=== PATIENT | male | born 1975 | race Caucasian/White ===

== ENCOUNTER 2024-07-06 15:35 | Emergency (ER) | payer OTHER, SELFPAY ==
[2024-07-06] VITALS (13 sets, daily range): BP systolic 141–156; BP diastolic 90–98; PULSE 62–81; RESP 8–18; TEMP 36.8; O2SAT 95–99
--- NOTE | ~2024-07-06 | XR_ITS ---
EXAMINATION: XR chest 2V Exam Date/Time: 07/06/2024 16:00 CDT HISTORY: cp Comparison: None. RESULT: Lines, tubes, and devices: None. Lungs and pleura: Clear. Cardiomediastinal silhouette: Normal. Other: No acute osseous or upper abdominal finding. IMPRESSION: No acute cardiopulmonary process. Reviewed, dictated and finalized at location K.
--- NOTE | 2024-07-06 15:38 | ECG_ITS ---
Test Date: 2024-07-06 15:44:04 Measurements Intervals [place] Rate: 82 P: 28 VA: 144 QRS: 73 QRSD: 97 T: 54 QT: 370 QTc: 432 Interpretive Statements SINUS RHYTHM WITH SINUS ARRHYTHMIA NORMAL ECG No previous ECG available for comparison Electronically Signed On 07-07-2024 13:45:14 CDT by Moreno Seals M.D.
--- NOTE | 2024-07-06 16:01 | PC.NURSE ---
mistaken entry, no ice pack applied to this pt
--- NOTE | 2024-07-06 16:09 | ED.CHESTPAIN ---
HPI - Chest Pain General Chief Complaint: Chest Pain Stated Complaint: dont feel right Time Seen by Provider: 07/06/24 15:46 Source: patient Mode of arrival: ambulatory Limitations: no limitations History of Present Illness HPI narrative: Patient is a 48-year-old male with chest pressure for the past day. This started at 9:00 a.m. today. He has been having chest pressure and pain that radiates to the left arm. he related to feeling like a gas bubble in the chest. MD complaint: chest pain and chest heaviness Pertinent past history: other ( No prior CAD issues) Onset (ago): day(s) (1) Timing of current episode: constant Prior episodes: No Onset: during rest and during exertion Pain location: substernal and left chest Pain radiation: left arm Severity: moderate Pain scale (0-10): 5 Quality: heaviness, sharp and shooting Relieving factors: nothing Exacerbating factors: nothing Context: other ( Negative history) Treatment prior to arrival: none Risk Factors Coronary artery disease risk factors: none Thoracic aortic dissection risk factors: none Related Data Home Medications Medication Instructions Recorded Confirmed No Home Medications 07/06/24 07/06/24 Allergies Allergy/AdvReac Type Severity Reaction Status Date / Time No Known Allergies Allergy Verified 07/06/24 15:55 Review of Systems Review of Systems: All systems reviewed & are unremarkable except as noted in HPI and below Constitutional: Constitutional: Reports no additional constitutional complaints Eyes: Eyes: Reports no additional eye complaints ENT: Reports system reviewed and no additional complaints, except as documented Cardiovascular: Cardiovascular: Reports no additional cardiovascular complaints Respiratory: Respiratory: Reports no additional respiratory complaints Gastrointestinal: Gastrointestinal: Reports no additional gastrointestinal complaints Genitourinary: Genitourinary: Reports no additional male genitourinary complaints Musculoskeletal: Musculoskeletal: Reports no additional musculoskeletal complaints Integumentary/Breasts: Skin/Breast: Reports system reviewed and no additional complaints, except as docu Neurologic: Reports system reviewed and no additional complaints, except as documented Psychiatric: Psychiatric: Reports no additional psychiatric complaints Endocrine: Endocrine: Reports no additional endocrine complaints Hematologic/Lymphatic: Hematologic/Lymphatic: Reports no additional hematologic/lymphatic complaints Allergic/Immunologic: Allergic/Immunologic: Reports no additional allergic/immunologic complaints Exam Const: General: healthy appearing Nutritional Appearance: well nourished Orientation/consciousness: patient oriented x3 HENMT: Head: normal to inspection Ears: external ears normal Face/Nose/Sinus: Normal external nose present Eyes: Conjunctivae: conjunctivae normal Pupils: Equal, round and reactive pupils present EOM: EOMs intact bilaterally Neck: Neck: normal visual inspection Chest: Chest palpation & inspection: normal inspection of the chest Resp: Effort & Inspection: normal respiratory effort and not labored Auscultation: clear to auscultation bilaterally and no crackles Cardio: Rate: regular rate Rhythm: regular rhythm Heart sounds: no murmurs GI: Inspection: non-distended GI Palp: Yes Soft to palpation and No Tenderness to palpation present (GI) Auscultation: normal bowel sounds : General: Yes bladder normal to palpation Back/Spine/Pelvis: Back: no CVA tenderness Skin: General skin exam: normal color Rashes: no rashes Wounds: no wounds Neuro: General: patient oriented x3 Cranial nerves: Yes Nystagmus not present Speech: normal speech Extrem: General: normal to inspection Psych: Mental Status: mental status grossly normal Affect: normal affect Attitude: cooperative Course Vital Signs Vital signs: Vital Signs Pulse Rate 75 07/06/24 15:35 Oxygen D
[2024-07-06 16:32] LABS: Basophils Absolute Auto 0.04 K/mm3 (0.00-0.10); Basophils Percent Auto 0.4 % (0.0-1.0); Eosinophils Absolute Auto 0.11 K/mm3 (0.02-0.50); Hematocrit 43.4 % (40.0-54.0); Hemoglobin 15.2 g/dL (14.0-18.0); Immature Granulocyte Absolute 0.05 K/mm3 (0.00-0.00); Immature Granulocyte Percent A 0.4 % (0.0-0.0); Lymphocytes Absolute Auto 2.29 K/mm3 (1.10-4.50); Lymphocytes Percent Auto 20.1 % (18.0-42.0); Mean Corpuscular Volume 94.3 fL (78.0-102.0); Mean Platelet Volume 9.1 fl (8.7-11.0); Monocytes Absolute Auto 0.69 K/mm3 (0.10-0.90); Neutrophils Absolute Auto 8.23 K/mm3 (1.70-7.20); Neutrophils Percent Auto 72.1 % (50.0-70.0); Platelet Count Result 258 K/mm3 (150-420); Red Cell Distribution Width 11.9 % (11.6-14.4); White Blood Count 11.4 K/mm3 (4.8-10.8)
--- NOTE | 2024-07-06 16:36 | PC.NURSE ---
PT HAS SIG OTHER AT BEDSIDE, DENIES ANY NEEDS OR COMPLAINTS. PT IS AWAITING RESULTS AT THIS TIME. NO CHANGE IN STATUS. VSS PER MONITOR. WILL CONTINUE TO MONITOR.
[2024-07-06 16:37] LABS: Amphetamine Screen Urine Negative (Negative); Barbiturate Screen Urine Negative (Negative); Benzodiazepines Screen Urine Negative (Negative); Cannabinoid Screen Urine Negative (Negative); Cocaine Screen Urine Negative (Negative); Methadone Screen Urine Negative (Negative); Opiate Screen Urine Negative (Negative); Phencyclidine Screen Urine Negative (Negative)
[2024-07-06 16:53] LABS: Alanine Aminotransferase 36 U/L (16-63); Albumin Level 3.8 g/dL (3.4-5.0); Alkaline Phosphatase 83 U/L (46-116); Anion Gap 5 mmol/L (4-12); Aspartate Amino Transferase 26 U/L (15-37); Bilirubin,Total 0.3 mg/dL (0.00-1.00); Blood Urea Nitrogen 12 mg/dL (7-18); Calcium 9.3 mg/dL (8.5-10.1); Carbon Dioxide 32 mmol/L (21-32); Chloride 99 mmol/L (98-108); Estimated CRCL calculation 99 ml/min; Estimated Glomerular Filt Rate > 60; Glucose 154 mg/dL (70-99); Lipase 23 U/L (16-77); NT Pro B Type Natriuretic Pept 30 pg/mL (0-125); Osmolality Calculated 284 mOsm/kg (285-295); Sodium 136 mmol/L (136-145); Total Protein 7.7 g/dL (6.4-8.2)
[2024-07-06 16:55] LABS: Troponin I 1078.7 ng/L (0.00-60.4)
[2024-07-06] MEDS: ASPIRIN 81 MG CHEWABLE TABLET 324 MG PO (17:15)
--- NOTE | 2024-07-06 17:18 | PC.NURSE ---
PT IS AWARE OF PLAN OF CARE, DENIES ANY NEEDS OR COMPLAINTS. PT REPORTS NO CHANGE IN STATUS, STATES HIS HEADACHE IS WORSE THAN THE PRESSURE IN HIS CHEST. SIG OTHER AT BEDSIDE. WILL CONTINUE TO MONITOR.
--- NOTE | 2024-07-06 18:39 | PC.NURSE ---
AWAITING APPROVAL FROM PHARMACY TO INITIATE HEPARIN DRIP. PT HAS SIG OTHER HAVE BEEN UPDATED. NAD NOTED. PT DENIES ANY NEEDS OR COMPLAINTS. PT IS AWAITING ROOM ASSIGNMENT. WILL CONTINUE TO MONITOR.
[2024-07-06] MEDS: HEPARIN SODIUM 5,000 UNITS/ML VIAL 4000 UNITS IV PUSH (18:49)
[2024-07-06] MEDS: HEPARIN SOD/D5W 100 UNITS/ML 25,000 UNITS/250 ML BAG 10 UNITS IV CONT (18:50)
--- NOTE | 2024-07-06 19:05 | PC.NURSE ---
1844 ROOM ASSIGNMENT 210 AT [facility] 1855 REPORT TO RN GERONIMO 839 SAAS NOTIFIED. BELONGINGS LIST COMPLETED. PT IS AWARE OF PLAN OF CARE, SIG OTHER HAS LEFT, ROOM ASSIGNMENT WAS PROVIDED. PT HAS IV MEDICATIONS INFUSING ORDERED WITHOUT DIFFICULTY. NAD NOTED. PT IS TALKING ON CELL WITHOUT DISTRESS.
[2024-07-06 19:36] LABS: Partial Thromboplastin Time 26.2 Sec (23.9-30.70); Prothrombin Time 10.6 Seconds (9.50-12.1)
== END 2024-07-06 19:31 | disposition short-term general hospital (02) ==
PROVIDERS: Emergency Provider Emergency Medicine
DX: I21.4 Non-ST elevation (NSTEMI) myocardial infarction (principal)
CPT/HCPCS: 36415; 71046; 80053; 80307; 83690; 83735; 83880; 84484; 85025; 85610; 85730; 93005; 96365; 99285; A9270; J1644

== ENCOUNTER 2024-07-06 22:33 | Inpatient (IN) | payer OTHER, SELFPAY ==
[2024-07-06 20:14] VITALS: BP 150/97; PULSE 73; RESP 20; TEMP 36.9; O2SAT 97
[2024-07-06 20:27] VITALS: BMI 30.4
--- NOTE | 2024-07-06 20:32 | PM.IMHP ---
H&P: HPI History of Present Illness Date/Time: 07/06/24 20:32 Chief Complaint: Chest Pain Narrative: 48 y/o M presents here with chest pain with PMH of HLD (on statin for less than a year and taken off medication). The patient presents here from home for further evaluation of chest discomfort.? The patient reports acute onset of chest pressure at 9:00 a.m. 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 ?He describes the chest discomfort as lower sternal/epigastric, feels like a ?gas bubble?, achy, radiating into his left shoulder and down his left arm, constant, and no aggravating factors.?States he became pale, diaphoretic, dizzy, and lightheaded.? Denies associated nausea, vomiting, syncope, shortness of breath. The patient initially went home after onset and took a nap from 11-2, pain did not resolve with resting. Patient then sopught care at that time at [place] ED where he was given 324 of aspirin which relieved his pain. Currently reporting mild gas bubble sensation but pain in his left upper extremity, lower chest pain, and headache have resolved. He denies previous cardiac history and/or KS. Does have family history of cardiac disease: father had CHF and grandmother had HTN. Initial VS at presentation: ?98.3? F, HR 75, RR 18, 155/92, and 97% on RA. ED workup showed: ?WBC 11.4, no anemia, no significant electrolyte derangements, creatinine 1.13 and GFR >60, glucose 154, and initial high sensitivity troponin was 1078.7.? UDS negative.? Initial EKG showed sinus rhythm with sinus arrhythmia, rate 82, no previous available for comparison, awaiting formal read.? CXR showed no acute cardiopulmonary process. Review of Systems Review of Systems: All systems reviewed & are unremarkable except as noted in HPI and below PMFSH Past Medical History Medical History Diabetes (~07/06/24) A1C 7% on 07/06/2024 HLD (hyperlipidemia) Previously treated with medication, improved and statin discontinued per patient. Surgical History Surgical History History of hand surgery Finger History of mandibular surgery Jaw reconstruction Family History Family History Father Heart failure Diabetes mellitus Grandparent Hypertension Diabetes mellitus Mother No problems noted. Social History Social History Smoking packs per day: 1 Smoking cigarettes per day: 20.0 Years smoked: 30 Smoking pack-years: 30.00 Smoking status: Current every day smoker Tobacco type: cigarettes Do You Feel Safe in your Home?: Yes Lack of Transportation: No Lack of Food: Never True Current Housing: I Have Housing Concerned About Future Housing: No Difficulty Paying Gas/Electric Bills: No Difficulty Paying for Meds: No Currently Unemployed: No Education: Decline to Answer Difficulty w/ Childcare or Family Care: Decline to Answer Spiritual care concerns: No Meds Home Medications and Allergies Home Medications Medication Instructions Recorded Confirmed Type No Home Medications 07/06/24 07/06/24 History Allergies Allergy/AdvReac Type Severity Reaction Status Date / Time No Known Allergies Allergy Verified 07/06/24 15:55 Exam Const: General: comfortable and no acute distress Other: , male, nontoxic appearance HENMT: Face/Nose/Sinus: Normal nares present Mouth: Yes moist mucous membranes Eyes: General: appearance normal, both eyes and all related structures Sclera: sclerae normal Pupils: Equal, round and reactive pupils present EOM: EOMs intact bilaterally Resp: Effort & Inspection: normal respiratory effort Auscultation: clear to auscultation bilaterally Cardio: Rate: regular rate Rhythm: regular rhythm Other: S1-S2 p
--- NOTE | 2024-07-06 20:32 | ADMGEN ---
2014: This patient, Holden Munoz, was admitted to IMU Room 210-01. Patient/family oriented to hospital policies and general routines including ID bracelet, bed and alarms, visiting hours, pain management, procedures, bathroom and other care routines, personal items, smoking policy, room service/diet, and visiting hours. Information on how to activate the Rapid Response Team has been discussed. Patient/Family are encouraged to report perceived risks to care and to ask questions if they do not understand what they are told or what they should do.
[2024-07-06 21:11] LABS: Cholesterol 275 mg/dL (0-200); HDL Direct 44 mg/dL; Triglycerides 134 mg/dL (<150)
[2024-07-06] MEDS: HEPARIN SOD/D5W 100 UNITS/ML 25,000 UNITS/250 ML BAG 10 UNITS IV CONT (21:30)
[2024-07-06 21:32] LABS: LDL Cholesterol Direct 172 mg/dL
--- NOTE | 2024-07-06 21:38 | ECG_ITS ---
Test Date: 2024-07-06 21:55:34 Measurements Intervals [place] Rate: 67 P: 34 CT: 186 QRS: 37 QRSD: 121 T: 82 QT: 389 QTc: 413 Interpretive Statements SINUS RHYTHM POSSIBLE RIGHT VENTRICULAR CONDUCTION DELAY [RSR (QR) IN V1/V2] ABNORMAL ECG Compared to ECG 07/06/2024 15:44:04 Sinus arrhythmia no longer present Electronically Signed On 07-07-2024 13:51:00 CDT by Moreno Seals M.D.
[2024-07-06 22:00] VITALS: PULSE 63
[2024-07-06 23:30] VITALS: BP 142/81; PULSE 71; RESP 18; TEMP 36.7; O2SAT 97
--- NOTE | 2024-07-06 23:36 | ECG_ITS ---
Test Date: 2024-07-06 23:40:31 Measurements Intervals [place] Rate: 69 P: 14 HI: 173 QRS: 47 QRSD: 104 T: 67 QT: 377 QTc: 406 Interpretive Statements SINUS RHYTHM NORMAL ECG Compared to ECG 07/06/2024 21:55:34 No significant changes Electronically Signed On 07-07-2024 13:51:28 CDT by Moreno Seals M.D.
[2024-07-07] VITALS (33 sets, daily range): BP systolic 104–144; BP diastolic 60–92; PULSE 60–88; RESP 0–20; TEMP 36.1–36.8; O2SAT 94–100
--- NOTE | 2024-07-07 | ECHO_ITS ---
Patient Info Name: Holden Munoz Age: 48 years : 1975 Gender: Male Ht: 64 in Wt: 250 lbs BSA: 2.32 m2 HR: 65 bpm BP: 110 / 61 mmHg Heart Rhythm: Sinus Rhythm Technical Quality: Good Exam Date: 07/07/2024 9:52 AM Exam Location: Echo Lab Patient Status: Inpatient Admit Date: 07/07/2024 Staff Ordering Physician: Sara Whitney APRN Charge Entry Specialist: Shahzad Lantigua RDCS Attending Provider: Cesar Barton MD Referring Physician: Devonte TSANG; Exam Type: CA echo doppler color flow Study Info Indications - chest pain, NSTEMI Complete two-dimensional, color flow and Doppler transthoracic echocardiogram is performed. Summary 1. Complete two-dimensional, color flow and Doppler transthoracic echocardiogram is performed. 2. The left ventricular size. LVEF is approximately 55-60%. There is mild hypokinesis of the entire inferolateral wall. 3. Dilated inferior vena cava with <50% collapse upon inspiration consistent with elevated right atrial pressure, 15 mmHg. Left Ventricle The left ventricular size. LVEF is approximately 55-60%. There is mild hypokinesis of the entire inferolateral wall. Right Ventricle The right ventricle size and systolic function is normal. Left Atria Left atrial chamber dimension is normal. Right Atria Right atrial chamber dimension is normal. Mitral Valve The mitral valve is normal. There is trace mitral regurgitation. Tricuspid Valve The tricuspid valve is normal. There is trace tricuspid regurgitation. Pericardium/Pleural Pericardium is normal in appearance with no evidence for significant pericardial effusion. Inferior Vena Cava Dilated inferior vena cava with <50% collapse upon inspiration consistent with elevated right atrial pressure, 15 mmHg. Aorta The aortic root measured at the level of the sinus of Valsalva is normal in diameter measuring 3.3 cm. Left Ventricular Outflow Tract Name Value Normal LVOT 2D LVOT Diameter 1.9 cm LVOT Doppler LVOT Peak Gradient 4 mmHg LVOT Mean Gradient 2 mmHg LVOT VTI 20 cm LVOT VTI/AV VTI Ratio 0.8 LVOT Stroke Volume 57 ml LVOT CO 4.0 l/min LVOT CI 1.7 l/min/m2 Pulmonic Valve Name Value Normal PV Doppler PV Peak Gradient 2 mmHg Mitral Valve Name Value Normal MV Doppler MV Decel [place] 269 cm/s2 MV PHT 66 ms MV Area (PHT) 3.3 cm2 4.0-5.0 MV Diastolic Function
[2024-07-07 03:47] LABS: Basophils Absolute Auto 0.1 K/mm3 (0.0-0.1); Basophils Percent Auto 0.4 % (0.2-1.2); Eosinophils Absolute Auto 0.3 K/mm3 (0-0.3); Eosinophils Percent Auto 2.2 % (0-4.4); Hematocrit 44.7 % (42.0-52.0); Hemoglobin 15.8 g/dL (14.0-18.0); Immature Granulocyte Absolute 0.03 K/mm3 (0.00-0.031); Immature Granulocyte Percent A 0.3 % (0-0.5); Lymphocytes Absolute Auto 2.65 K/mm3 (0.9-3.2); Lymphocytes Percent Auto 23.7 % (18.3-44.2); Mean Corpuscular HGB Conc 35.3 g/dl (32-36); Mean Corpuscular Hemoglobin 33.8 pg (26-34); Mean Corpuscular Volume 95.7 fl (80-100); Monocytes Absolute Auto 0.7 K/mm3 (0.1-0.6); Monocytes Percent Auto 6.4 % (2.6-8.5); Neutrophils Absolute Auto 7.5 K/mm3 (1.3-6.7); Platelet Count Result 225 k/mm3 (150-375); Red Blood Count 4.67 M/mm3 (4.6-6.20); Red Cell Distribution Width 12.2 % (11.5-14.5); White Blood Count 11.2 K/mm3 (4.5-10.0)
[2024-07-07 03:58] LABS: Partial Thromboplastin Time 29.7 Seconds (22.3-36.8)
[2024-07-07] MEDS: HEPARIN SODIUM 5,000 UNITS/ML VIAL 4000 UNITS IV PUSH ×2 (04:24→11:18)
[2024-07-07 08:44] LABS: Glucose Point of Care 149 mg/dl (65-105)
[2024-07-07] MEDS: METOPROLOL TARTRATE 12.5 MG TABLET PO ×2 (10:12→20:18)
--- NOTE | 2024-07-07 10:50 | PC.NURSE ---
To recyclable materials sorter.
[2024-07-07 10:54] LABS: Partial Thromboplastin Time 41.7 Seconds (22.3-36.8)
--- NOTE | 2024-07-07 11:02 | PM.CNCAR ---
Assessment and Plan Assessment and plan (1) NSTEMI (non-ST elevated myocardial infarction): Code(s): I21.4 - Non-ST elevation (NSTEMI) myocardial infarction Status: Acute Plan 48-year-old man with no significant past medical history presented with chest pain whose clinical presentation is consistent with non ST elevation IA. 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 He has not noticed any exertional limitations in the past few weeks. Denies any shortness of breath, orthopnea, syncope, and bleeding. He does have a paternal grandmother and father who has heart condition. Review of Systems Review of Systems: All systems reviewed & are unremarkable except as noted in HPI and below PMFSH Past Medical History Medical History Diabetes (~07/06/24) A1C 7% on 07/06/2024 HLD (hyperlipidemia) Previously treated with medication, improved and statin discontinued per patient. Surgical History Surgical History History of hand surgery Finger History of mandibular surgery Jaw reconstruction Family History Family History Father Heart failure Diabetes mellitus Grandparent Hypertension Diabetes mellitus Mother No problems noted. Social History Social History Smoking packs per day: 1 Smoking cigarettes per day: 20.0 Years smoked: 30 Smoking pack-years: 30.00 Smoking status: Current every day smoker Tobacco type: cigarettes Do You Feel Safe in your Home?: Yes Lack of Transportation: No Lack of Food: Never True Current Housing: I Have Housing Concerned About Future Housing: No Difficulty Paying Gas/Electric Bills: No Difficulty Paying for Meds: No Currently Unemployed: No Education: Decline to Answer Difficulty w/ Childcare or Family Care: Decline to Answer Spiritual care concerns: No Meds Home Medications and Allergies Home Medications Medication Instructions Recorded Confirmed Type No Home Medications 07/06/24 07/06/24 History Allergies Allergy/AdvReac Type Severity Reaction Status Date / Time No Known Allergies Allergy Verified 07/06/24 15:55 Vital Signs Vital Signs - 24 hr 07/06/24 20:14 07/06/24 22:00 07/06/24 20:24 Temperature 36.9 C Pulse Rate 73 63 Respiratory Rate 20 Blood Pressure 150/97 H Pulse Oximetry 97 Oxygen Delivery Room Air 07/06/24 20:14 07/06/24 23:30 07/07/24 00:00 Temperature 36.7 C Pulse Rate 73 71 Respiratory Rate 18 Blood Pressure 142/81 H Pulse Oximetry 97 97 Oxygen Delivery Room Air Room Air 07/07/24 00:00 07/07/24 02:00 07/07/24 04:00 Temperature Pulse Rate 73 67 67 Respiratory Rate Blood Pressure Pulse Oximetry Oxygen Delivery 07/07/24 04:00 07/07/24 04:00 07/07/24 05:54 Temperature 36.6 C Pulse Rate 73 71 Respiratory Rate 20 Blood Pressure 134/69 Pulse Oximetry 96 Oxygen Delivery Room Air 07/07/24 07:50 07/07/24 10:12 07/07/24 08:00 Temperature 36.6 C Pulse Rate 78 76 Respiratory Rate 0 L Blood Pressure 128/69 Pulse Oximetry 97 97 Oxygen Delivery Room Air Exam Const: General: comfortable HENMT: Mouth: Yes moist mucous membranes Eyes: EOM: EOMs intact bilaterally Neck: Neck: no JVD
--- NOTE | 2024-07-07 11:48 | WPDMODSED ---
Moderate Sedation Note-Pt Data Patient Data Allergies Allergy/AdvReac Type Severity Reaction Status Date / Time No Known Allergies Allergy Verified 07/06/24 15:55 Home Medications Medication Instructions Recorded Confirmed Type No Home Medications 07/06/24 07/06/24 History Current Medications: Active Medications Acetaminophen (Acetaminophen 325 Mg Tablet) 650 mg PO Q4H PRN PRN Reason: Mild Pain (1-3) or Fever Aspirin (Aspirin 81 Mg Enteric Tablet) 81 mg PO QAM [place] Dextrose (Dextrose 50% 25 Gm/50 Ml Syringe) 12.5 gm IV PUSH PRN PRN; Protocol PRN Reason: Hypoglycemia Glucagon (Glucagon For Inj 1 Mg Vial) 1 mg IM PRN PRN; Protocol PRN Reason: Hypoglycemia Glucose (Glucose Oral Gel 15 Gm Of Glucse In 37.5 Gm Tube) 15 gm PO PRN PRN; Protocol PRN Reason: Hypoglycemia Heparin Sodium (Porcine) (Heparin Sodium 5,000 Units/Ml Vial) 4,000 units IV PUSH PRN PRN PRN Reason: aPTT less than 55 seconds Last Admin: 07/07/24 11:18 Dose: 4,000 units Heparin Sodium (Porcine) (Heparin Sodium 5,000 Units/Ml Vial) 4,000 units IV PUSH PRN PRN PRN Reason: aPTT 55 - 70 seconds Hydralazine HCl (Hydralazine Hcl 20 Mg/Ml Vial) 10 mg IV PUSH Q8H PRN PRN Reason: BP greater than 180/90 Heparin Sodium/Dextrose (Heparin Sodium/D5w 100 Units/Ml) 25,000 units in 250 mls @ 18 mls/hr IV CONT .[id number] [facility]; Protocol Last Titration: 07/07/24 11:19 Dose: 1,800 units/hr, 18 mls/hr Dextrose (Dextrose 5% 1,000 Ml) 1,000 mls @ 100 mls/hr IVPB PRN PRN; Protocol PRN Reason: Hypoglycemia Insulin Aspart (Insulin Aspart (*Bkc) 100 Units/Ml) 2 - 5 units SUB-Q TIDWM [facility]; Protocol Last Admin: 07/07/24 08:09 Dose: Not Given Metoprolol Tartrate (Metoprolol Tartrate 12.5 Mg Tablet) 12.5 mg PO Q12HR [facility] Last Admin: 07/07/24 10:12 Dose: 12.5 mg Nitroglycerin (Nitroglycerin Sl 0.4 Mg Tablet) 0.4 mg SUBLINGUAL Q5MIN PRN PRN Reason: Chest Pain Ondansetron HCl (Ondansetron Inj 4 Mg/2 Ml Vial) 4 mg IV PUSH Q6H PRN PRN Reason: Nausea And Vomiting Perflutren Lipid Microsphere (Perflutren Lipid Microspheres 1.5 Ml Vial Diluted To 10 Ml Total Volume) 0 ml IV PUSH ONCE PRN; Protocol PRN Reason: adequate visualization Stop: 07/09/24 20:38 Rosuvastatin Calcium (Rosuvastatin 20 Mg Tablet) 40 mg PO QAM [facility] Sedation/Anesthesia: No previous sedation/anesthesia problems (including family history). [facility] Past Medical History Medical History Diabetes (~07/06/24) A1C 7% on 07/06/2024 HLD (hyperlipidemia) Previously treated with medication, improved and statin discontinued per patient. Surgical History Surgical History History of hand surgery Finger History of mandibular surgery Jaw reconstruction Family History Family History Father Heart failure Diabetes mellitus Grandparent Hypertension Diabetes mellitus Mother No problems noted. Social History Social History Smoking packs per day: 1 Smoking cigarettes per day: 20.0 Years smoked: 30 Smoking pack-years: 30.00 Smoking status: Current every day smoker Tobacco type: cigarettes Do You Feel Safe in your Home?: Yes Lack of Transportation: No Lack of Food: Never True Current Housing: I Have Housing Concerned About Future Housing: No Difficulty Paying Gas/Electric Bills: No Difficulty Paying for Meds: No Currently Unemployed: No Education: Decline to Answer Difficulty w/ Childcare or Family Care: Decline to Answer Spiritual care concerns: No Mod Sed Physical Exam Physical Exam Pre Procedural Exam: Normal: Appearance, Lungs, Heart Rate and Heart Rhythm Hours since solid foods: 12 Hours since liquid intake: 8 Mallampati Classification: class II Internal Medicine - PN: Obj Da Vital Signs Vital Signs: Vital Sig
[2024-07-07 12:27] LABS: Glucose Point of Care 149 mg/dl (65-105)
--- NOTE | 2024-07-07 14:23 | WPDCARDPROC ---
Cardiac Cath Procedure Note Date of procedure:: 07/07/24 Performing physician:: CATHETERIZATION LABORATORY REPORT Procedure Date: 07/07/2024 Referring Physician: Dr. Devonte Ruiz Anesthesia: Versed and Fentanyl were ordered and given in my presence at 1237, procedure ended at 1350. Supervision of nurse, Fabiola Denton, monitored moderate sedation with Versed and Fentanyl was provided for 73 minutes. Pre-op Diagnosis: NSTEMI Post-op Diagnosis: NSTEMI Procedure(s): Left heart catheterization with coronary angiography Percutaneous Coronary Intervention IVUS Access Site: Right radial artery. TR band was used for hemostasis Brief History and Clinical Indications: 48-year-old man with no significant past medical history presented with chest pain whose clinical presentation is consistent with non ST elevation ME All risks, benefits and alternatives to left heart catheterization with or without percutaneous coronary intervention was discussed at length with the patient. Risk of complications including but not limited to bleeding, infection, arrhythmia, stroke, worsening kidney function, blood loss, groin hematoma, limb loss, emergency coronary artery bypass grafting, and even were discussed with the patient and all questions were answered. The patient understood and wished to proceed. Time out called, patient name, date of , medical record number, allergies, procedure performed, identify Ux Design Lead, patient and staff member concurred with accurate data, procedure carried on. Findings: LEFT HEART CATHETERIZATION FINDINGS: 1. Left main: The left main coronary artery is short and widely patent without any significant obstructive disease. 2. Left anterior descending: The LAD and the diagonal branches have mild luminal irregularities without any significant obstructive angiographic disease. There is myocardial bridge in the mid-LAD 3. Left circumflex: The left circumflex artery provides 3 OM branches before becoming the LPDA. This is a co-dominant vessel. The left circumflex has 20% stenosis in it's distal body. The OM1 is occluded in its proximal body with LILLY 0 flow. The OM2 has luminal irregularities. The OM3 is a small vessel with luminal irregularities. 4. Right coronary artery: The RCA has mild luminal irregularities without any significant obstructive angiographic disease. There is 20% distal disease. The RCA is a co-dominant vessel. 5. Left ventricle: A. End-diastolic pressure 23 mmHg. B. LV gram deferred. C. No significant gradient across aortic valve on catheter pullback. 6. Opening AO pressure 94/65 (76) and closing AO pressure 108/73 (88) Description of Procedure: Informed consent signed and placed in the chart. Patient transferred to superintendent geophysical laboratory room. Prepped and draped in usual sterile fashion. 2% lidocaine injected subcutaneously in right wrist area. 22-gauge venipuncture catheter used to access the right radial artery with the Seldinger technique. 6-FR slender sheath placed in right radial artery. Nitroglycerin 200mcg, Verapamil 2.5mg, and Heparin 5000U was given intraarterial through the sheath. J wire advanced under fluoroscopy 5Fr TIG diagnostic catheter engaged Left Main Coronary Artery. 5Fr TIG diagnostic catheter engaged Right Coronary Artery Multiple orthogonal angiogram obtained and reviewed 5Fr Pigtail diagnostic catheter crossed aortic valve to obtain LVEDP, LV angiogram deferred. Procedure Description for PCI: Heparin was used for anticoagulation (ACT maintained above 250) Patient loaded with heparin at 70 units/kg. 6F CLS 3.5 guide catheter was used to engage the LMCA 0.014 Samurai coronary wire could not enter the LCx due to a short left main coronary artery. It was passed into the LAD and a 0.014 [place] coronary wire was used to enter the OM1 branch. However, the [place] wire could cross the OM1 lesion. A 0.014 Car And [employer] Supervisor 150 coronary wire was then used to attempt to negotiate through
--- NOTE | 2024-07-07 14:40 | ECG_ITS ---
Test Date: 2024-07-07 18:33:55 Measurements Intervals Crane Rate: 76 P: 14 NE: 155 QRS: 51 QRSD: 89 T: 91 QT: 366 QTc: 412 Interpretive Statements SINUS RHYTHM Compared to ECG 07/06/2024 23:40:31 No significant changes Electronically Signed On 07-07-2024 21:42:26 CDT by Edil Head M.D.
--- NOTE | 2024-07-07 15:06 | PM.IMPN ---
Progress Note: A&P Assessment and Plan (1) Acute non-ST elevation myocardial infarction (NSTEMI): Code(s): I21.4 - Non-ST elevation (NSTEMI) myocardial infarction Status: Inactive Assessment and Plan: EKG on admission no acute ST-T changes, chest x-ray unremarkable. Troponin level. Patient was placed on heparin infusion. Awaiting cardiac catheterization content. Echo pending. A1c 7.0, LDL 172 Continued medications reviewed Cardiology consulted. (2) Elevated blood pressure reading without diagnosis of hypertension: Code(s): R03.0 - Elevated blood-pressure reading, without diagnosis of hypertension Status: Acute Assessment and Plan: - elevated without previous dx of HTN, currently 150/97 Monitor and adjust medications. (3) Diabetes: Onset Date: ~07/06/24 Qualifiers: Diabetes mellitus type: type 2 Diabetes mellitus half-way insulin use: without half-way use Diabetes mellitus complication status: without complication Qualified Code(s): E11.9 - Type 2 diabetes mellitus without complications Code(s): E11.9 - Type 2 diabetes mellitus without complications Status: Acute Assessment and Plan: A1c 7.0%, new onset diabetes - hypoglycemia protocol - POC blood glucose ACHS - correct regimen ordered - low dose TIDWM - procurement engineer consulted for new DM education Plan DVT Prophylaxis: ?Heparin gtt Lines: ?Peripheral Code Status: Full code Subjective Date/time seen: 07/07/24 15:06 Interval history: Comfortable and awaiting cardiac cath Review of Systems Review of Systems: All systems reviewed & are unremarkable except as noted in HPI and below Exam Const: General: comfortable and no acute distress Other: , male, nontoxic appearance HENMT: Face/Nose/Sinus: Normal nares present Mouth: Yes moist mucous membranes Eyes: General: appearance normal, both eyes and all related structures Sclera: sclerae normal Pupils: Equal, round and reactive pupils present EOM: EOMs intact bilaterally Resp: Effort & Inspection: normal respiratory effort Auscultation: clear to auscultation bilaterally Cardio: Rate: regular rate Rhythm: regular rhythm Other: S1-S2 present without murmur, rub, ectopy GI: Other: Abdomen soft, nondistended, nontender. Skin: General skin exam: normal color and no rashes or lesions noted Wounds: no wounds Neuro: General: gait normal Cranial nerves: Yes Equal, round and reactive pupils present Speech: normal speech Motor exam (neuro): 5/5 motor strength present throughout Sensory Exam: normal sensation Other: A&O x4 Extrem: General: normal to inspection Psych: Mental Status: mental status grossly normal Affect: normal affect Other: Good insight and judgment, pleasant Objective Data Vital Signs Vital Signs: Vital Signs - 24 hr 07/06/24 20:14 07/06/24 22:00 07/06/24 20:24 Temperature 98.4 F Pulse Rate 73 63 Respiratory Rate 20 Blood Pressure 150/97 H Pulse Oximetry 97 Oxygen Delivery Room Air 07/06/24 20:14 07/06/24 23:30 07/07/24 00:00 Temperature 98.1 F Pulse Rate 73 71 Respiratory Rate 18 Blood Pressure 142/81 H Pulse Oximetry 97 97 Oxygen Delivery Room Air Room Air 07/07/24 00:00 07/07/24 02:00 07/07/24 04:00 Temperature Pulse Rate 73 67 67 Respiratory Rate Blood Pressure Pulse Oximetry Oxygen Delivery 07/07/24 04:00 07/07/24 04:00 07/07/24 05:54 Temperature 97.8 F Pulse Rate 73 71 Respiratory Rate 20 Blood Pressure 134/69 Pulse Oximetry 96 Oxygen Delivery Room Air 07/07/24 07:50 07/07/24 10:12 07/07/24 08:00 Temperature 97.8 F Pulse Rate 78 76 Respiratory Rate 0 L Blood Pressure 128/69 Pulse Oximetry 97 97 Oxygen Delivery Room Air 07/07/24 11:22 07/07/24 08:00 07/07/24 10:00 Temperature 97.3 F L Pulse Rate 75 69 73 Respiratory Rate 20 B
[2024-07-07 15:25] LABS: Activated Clotting Time 244 SEC (74-137)
[2024-07-07 15:25] LABS: Activated Clotting Time 263 SEC (74-137)
--- NOTE | 2024-07-07 15:57 | PCCDE ---
Consult received 07/07 for diabetes education r/t new onset DM. Pt was admitted 07/06 with NSTEMI and found to have elevated A1c of 7%. Attempted to see but pt was still off the unit for cardiac cath. Left DM book at bedside with DM Specialist contact info
[2024-07-07 16:50] LABS: Hemoglobin A1C 7.1 % (<5.7)
--- NOTE | 2024-07-07 18:55 | PC.NURSE ---
Returned from flue dust laborer.
[2024-07-07] MEDS: SODIUM CHLORIDE 0.9% IV 1,000 ML 125 ML IV CONT (18:56)
[2024-07-07] MEDS: TICAGRELOR 90 MG TABLET PO (20:19)
[2024-07-07 20:36] LABS: Glucose Point of Care 214 mg/dl (65-105)
[2024-07-08] VITALS (10 sets, daily range): BP systolic 109–120; BP diastolic 56–73; PULSE 58–85; RESP 18–20; TEMP 36.4–36.8; O2SAT 95–98
[2024-07-08 05:35] LABS: Basophils Absolute Auto 0.1 K/mm3 (0.0-0.1); Basophils Percent Auto 0.7 % (0.2-1.2); Eosinophils Absolute Auto 0.2 K/mm3 (0-0.3); Hematocrit 45.2 % (42.0-52.0); Hemoglobin 15.2 g/dL (14.0-18.0); Immature Granulocyte Absolute 0.03 K/mm3 (0.00-0.031); Immature Granulocyte Percent A 0.3 % (0-0.5); Lymphocytes Absolute Auto 2.16 K/mm3 (0.9-3.2); Lymphocytes Percent Auto 24.4 % (18.3-44.2); Mean Corpuscular HGB Conc 33.6 g/dl (32-36); Mean Corpuscular Hemoglobin 32.8 pg (26-34); Mean Corpuscular Volume 97.4 fl (80-100); Mean Platelet Volume 9.2 fl (7.4-10.4); Monocytes Absolute Auto 0.7 K/mm3 (0.1-0.6); Monocytes Percent Auto 8.4 % (2.6-8.5); Neutrophils Absolute Auto 5.7 K/mm3 (1.3-6.7); Neutrophils Percent Auto 64.2 % (45.5-73.1); Platelet Count Result 221 k/mm3 (150-375); Red Blood Count 4.64 M/mm3 (4.6-6.20); Red Cell Distribution Width 12.4 % (11.5-14.5); White Blood Count 8.9 K/mm3 (4.5-10.0)
[2024-07-08 05:47] LABS: Alanine Aminotransferase 30 U/L (6-50); Albumin Level 4.3 g/dL (3.5-5.1); Alkaline Phosphatase 74 U/L (38-126); Anion Gap 6 mmol/L (4-12); Aspartate Amino Transferase 72 U/L (17-59); Bilirubin,Total 0.5 mg/dL (0.2-1.3); Blood Urea Nitrogen 15 mg/dL (9-20); Calcium 9.3 mg/dL (8.4-10.2); Carbon Dioxide 27 mmol/L (22-30); Chloride 104 mmol/L (98-107); Estimated CRCL calculation 111 ml/min; Estimated Glomerular Filt Rate > 60; Glucose 128 mg/dL (65-110); Potassium 4.3 mmol/L (3.4-5.0); Sodium 137 mmol/L (137-145)
[2024-07-08 06:45] LABS: Glucose Point of Care 147 mg/dl (65-105)
[2024-07-08] MEDS: ROSUVASTATIN 20 MG TABLET 40 MG PO (08:37)
[2024-07-08] MEDS: TICAGRELOR 90 MG TABLET PO (08:37)
[2024-07-08] MEDS: METOPROLOL SUCCINATE EXT REL 50 MG TABCR PO (08:38)
[2024-07-08] MEDS: ASPIRIN 81 MG ENTERIC TABLET PO (08:38)
--- NOTE | 2024-07-08 10:36 | PM.PNCARD ---
Progress Note: A&P Assessment and Plan (1) NSTEMI (non-ST elevated myocardial infarction): Code(s): I21.4 - Non-ST elevation (NSTEMI) myocardial infarction Status: Acute Plan 48-year-old man with no significant past medical history presented with chest pain whose clinical presentation is consistent with non ST elevation [place] NSTEMI - sp PCI to OM - continue asa 81mg PO daily, ticagrelor 90mg PO BID, rosuvastatin 40mg qhs, and metoprolol succinate 50mg PO daily can be discharged to follow up with me outpatient thank you Subjective Date/time seen: 07/08/24 10:36 Interval history: chest pain free. doing well. no issues with right wrist or hand Review of Systems Review of Systems: All systems reviewed & are unremarkable except as noted in HPI and below Exam Const: General: comfortable HENMT: Mouth: Yes moist mucous membranes Eyes: EOM: EOMs intact bilaterally Neck: Neck: no JVD Resp: Auscultation: clear to auscultation bilaterally Cardio: Heart sounds: no gallops, no murmurs and no rubs GI: GI Palp: Yes Soft to palpation Neuro: Speech: normal speech Extrem: General: normal to inspection Psych: Affect: normal affect Objective Data Vital Signs Vital Signs: Vital Signs - 24 hr 07/07/24 11:22 07/07/24 12:00 07/07/24 12:00 Temperature 36.3 C L Pulse Rate 75 74 Respiratory Rate 20 Blood Pressure 134/85 Pulse Oximetry 96 96 Oxygen Delivery Room Air 07/07/24 14:15 07/07/24 16:00 07/07/24 14:30 Temperature 36.6 C Pulse Rate 71 68 72 Respiratory Rate 14 18 16 Blood Pressure 104/70 134/91 H 105/72 Pulse Oximetry 94 98 96 Oxygen Delivery Room Air Room Air Room Air 07/07/24 14:45 07/07/24 15:00 07/07/24 15:30 Temperature Pulse Rate 60 61 63 Respiratory Rate 14 16 14 Blood Pressure 104/75 121/67 139/82 Pulse Oximetry 98 98 98 Oxygen Delivery Room Air Room Air Room Air 07/07/24 16:15 07/07/24 16:30 07/07/24 17:00 Temperature Pulse Rate 73 66 77 Respiratory Rate 16 14 18 Blood Pressure 140/77 133/89 142/89 H Pulse Oximetry 98 98 100 Oxygen Delivery Room Air Room Air Room Air 07/07/24 17:15 07/07/24 17:30 07/07/24 17:45 Temperature Pulse Rate 69 69 78 Respiratory Rate 18 14 18 Blood Pressure 133/89 133/92 H 143/92 H Pulse Oximetry 98 97 98 Oxygen Delivery Room Air Room Air Room Air 07/07/24 19:14 07/07/24 18:00 07/07/24 18:15 Temperature 36.8 C Pulse Rate 80 69 73 Respiratory Rate 20 16 16 Blood Pressure 135/76 131/77 144/89 H Pulse Oximetry 95 99 97 Oxygen Delivery Room Air Room Air 07/07/24 18:30 07/07/24 19:30 07/07/24 20:18 Temperature 36.1 C L Pulse Rate 73 88 84 Respiratory Rate 14 20 Blood Pressure 136/85 143/83 H Pulse Oximetry 96 96 Oxygen Delivery Room Air 07/07/24 20:00 07/07/24 21:17 07/07/24 21:00 Temperature 36.3 C L 36.6 C Pulse Rate 81 79 Respiratory Rate 20 20 Blood Pressure 122/63 119/60 119/60 Pulse Oximetry 98 95 Oxygen Delivery 07/07/24 20:00 07/07/24 22:00 07/07/24 20:00 Temperature Pulse Rate 79 74 Respiratory Rate Blood Pressure Pulse Oximetry Oxygen Delivery Room Air 07/07/24 23:49 07/07/24 23:55 07/08/24 00:00 Temperature 36.6 C Pulse Rate 74 58 L Respiratory Rate 20 Blood Pressure 120/62 Pulse Oximetry 96 Oxygen Delivery Room Air 07/08/24 02:00 07/08/24 03:24 07/08/24 04:00 Temperature Pulse Rate 65 66 Respiratory Rate Blood Pressure Pulse Oximetry Oxygen Delivery Room Air 07/08/24 04:00 07/08/24 06:00 07/08/24 08:18 Temperature 36.4 C 36.8 C Pulse Rate 70 79 66 Respiratory Rate 18 20 Blood Pressure 109/64 115/56 L Pulse Oximetry 95 98 Oxygen Delivery 07/08/24 08:38 Temperature Pulse Rate 83 Respiratory Rate Blood Pressure Pulse Oximetry Oxygen Delivery Intake/Output Intake/Output: Intake & Output 07/05/24 07/06/24 07/07/24 07/08/24 23:59 23:59 23:59 23:59 Intake T
[2024-07-08 11:59] LABS: Glucose Point of Care 254 mg/dl (65-105)
[2024-07-08] MEDS: INSULIN ASPART (*BKC) 100 UNITS/ML SUB-Q (12:38)
--- NOTE | 2024-07-08 13:09 | PM.DS ---
DS: Admitting Diagnosis Discharge Date 07/08/24 Admitting Diagnosis Chest pain DS: Discharge Diagnosis Discharge Diagnosis (1) NSTEMI (non-ST elevated myocardial infarction): Code(s): I21.4 - Non-ST elevation (NSTEMI) myocardial infarction Status: Acute DS: Summary Hospital Course Hospital Course: 48 y/o M presents here with chest pain with PMH of HLD (on statin for less than a year and taken off medication). The patient presents here from home for further evaluation of chest discomfort.? The patient reports acute onset of chest pressure at 9:00 a.m. 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 ?He describes the chest discomfort as lower sternal/epigastric, feels like a ?gas bubble?, achy, radiating into his left shoulder and down his left arm, constant, and no aggravating factors.?States he became pale, diaphoretic, dizzy, and lightheaded.? Denies associated nausea, vomiting, syncope, shortness of breath. The patient initially went home after onset and took a nap from 2, pain did not resolve with resting. Patient then sopught care at that time at [facility] where he was given 324 of aspirin which relieved his pain. Currently reporting mild gas bubble sensation but pain in his left upper extremity, lower chest pain, and headache have resolved. He denies previous cardiac history and/or PR. Does have family history of cardiac disease: father had CHF and grandmother had HTN. Initial VS at presentation: ?98.3? F, HR 75, RR 18, 155/92, and 97% on RA. ED workup showed: ?WBC 11.4, no anemia, no significant electrolyte derangements, creatinine 1.13 and GFR >60, glucose 154, and initial high sensitivity troponin was 1078.7.? UDS negative.? Initial EKG showed sinus rhythm with sinus arrhythmia, rate 82, no previous available for comparison, awaiting formal read.? CXR showed no acute cardiopulmonary process. Patient underwent cardiac cath with PCI to PC to OM, now on Aspirin, Brilinta, Crestor and metoprolol. A1c 7.0 started on Metformin. will follow up with PCP for continued adjustment. LDL 172. F/u with PCP in 3-5 days and with cardiology as instructed. Assessment and Plan (1) Acute non-ST elevation myocardial infarction (NSTEMI): Code(s): I21.4 - Non-ST elevation (NSTEMI) myocardial infarction Status: Inactive Assessment and Plan: EKG on admission no acute ST-T changes, chest x-ray unremarkable. s/p cardiac cath with PCI to OM Echo EF 55-60% A1c 7.0, LDL 172 Aspirin, Brilinta, Crestor and Metoprolol Cardiology input appreciated (2) Elevated blood pressure reading without diagnosis of hypertension: Code(s): R03.0 - Elevated blood-pressure reading, without diagnosis of hypertension Status: Acute Assessment and Plan: - elevated without previous dx of HTN, currently 150/97 on Metoprolol 50 mg (3) Diabetes: Onset Date: ~07/06/24 Qualifiers: Diabetes mellitus type: type 2 Diabetes mellitus senior living insulin use: without senior living use Diabetes mellitus complication status: without complication Qualified Code(s): E11.9 - Type 2 diabetes mellitus without complications Code(s): E11.9 - Type 2 diabetes mellitus without complications Status: Acute Assessment and Plan: A1c 7.0%, new onset diabetes S/p SSI with accucheks On Metformin f/u with PCP F/u with PCP in 3-5 days, cardiology as instructed. Time Spent with Patient Time attestation: Total time spent providing and/or coordinating discharge services: DS: Data Data Completed and Pending Labs on day of discharge: Labs from last 24 hours 07/08/24 07/08/24 07/08/24 11:22 06:33 05:13 WBC 8.9 RBC 4.64 Hgb 15.2 Hct 45.2 MCV 97.4 MCH 32.8 MCHC 33.6 RDW 12.4 Plt Count 221 MPV 9.2 Immature Gran % (Auto) 0.3 Neut % (Auto) 64.2 Lymph % (Auto) 24.4 [place] % (Auto) 8.4 Eos % (Auto) 2.
--- NOTE | 2024-07-09 12:00 | PCCDE ---
07/09/: 12:00pm I left a courtesy message on his voice mail including my direct line (and my colleague, Phuong graham - since I am off next week) FJ
== END 2024-07-08 13:48 | disposition home or self-care (01) | DRG 322 ==
PROVIDERS: Internal Medicine; Nurse Practitioner; Student in an Organized Health Care Education/Training Program; Admitting Provider Internal Medicine; Visit Provider Internal Medicine
PROC: 4A023N7 Measurement of Cardiac Sampling and Pressure, Left Heart, Percutaneous Approach (ICD-10-PCS; CPT 93452; principal; 2024-07-07 11:30)
PROC: 4A023N7 Measurement of Cardiac Sampling and Pressure, Left Heart, Percutaneous Approach (ICD-10-PCS; CPT 92928; 2024-07-07 11:30)
PROC: 4A023N7 Measurement of Cardiac Sampling and Pressure, Left Heart, Percutaneous Approach (ICD-10-PCS; 2024-07-07 11:30)
DX: I21.4 Non-ST elevation (NSTEMI) myocardial infarction (principal); Q24.5 Malformation of coronary vessels; R03.0 Elevated blood-pressure reading, without diagnosis of hypertension; E11.9 Type 2 diabetes mellitus without complications; F17.210 Nicotine dependence, cigarettes, uncomplicated
CPT/HCPCS: 36415; 80053; 80061; 82948; 83036; 83735; 84484; 85025; 85730; 92978; 93005; 93306; 93458; 94762; 96365; 96366; A9270; C1725; C1753; C1769; C1874; C1887; C1894; C9600; G0378; G0379; J1644; J1815; J2003; J2250; J2305; J3010; J7030; J7040

== ENCOUNTER 2025-07-11 10:25 | Emergency (ER) | payer OTHER, SELFPAY ==
--- NOTE | ~2025-07-11 | CT_ITS ---
CT ABDOMEN AND PELVIS WITHOUT CONTRAST Clinical History: right flank pain Comparison: None Technique: Unenhanced axial images lung bases to symphysis pubis Coronal, sagittal reformats CT images acquired with automatic exposure control for dose reduction DLP: 373 mGy-cm Findings: Without intravenous contrast, sensitivity for detecting visceral parenchymal abnormalities decreased. Lung bases: Clear. Visualized heart and pericardium: Unremarkable. Liver: Steatosis. Enlarged. Gallbladder: Unremarkable. Spleen: Unremarkable. Pancreas: Unremarkable. Adrenal glands: Unremarkable. Kidneys: Right kidney- Hydronephrosis. No renal stones. 3 mm stone proximal ureter. Left kidney- No hydronephrosis. No renal stones. Distal esophagus/stomach: Unremarkable. Small bowel loops: Normal caliber and wall thickness. Colon: Diverticula. Normal caliber and wall thickness. Normal RLQ appendix. Nodes: No enlarged nodes. Peritoneum: No ascites. No free intraperitoneal air. Urinary bladder: Unremarkable. Prostate: Unremarkable. Bones: No acute bony abnormality. Soft tissues: Unremarkable. Unopacified abdominal aorta: No aneurysmal dilatation. IMPRESSION: 1. Right kidney hydronephrosis due to 3 mm proximal ureteral stone. 2. No other acute abnormality. 3. Additional findings as above. Reviewed, dictated and finalized at location R.
[2025-07-11 10:26] VITALS: BP 159/77; PULSE 73; RESP 20; TEMP 36.9; O2SAT 100
--- NOTE | 2025-07-11 10:29 | ED_ITS ---
HPI - Back Pain/Injury General Chief Complaint: Urogenital-Male Stated Complaint: rt. side flank pain Time Seen by Provider: 07/11/25 10:27 History of Present Illness HPI Narrative: Pt noticed some pain in right flank about 0600 this morning while in bed. Pt says the pain was steady but got worse aroun 0900. Pt says the pain is constant but waxes and wanes in severity. Pt denies injury to back. Pt has no significant low back pain history and no history of kidney stones. Pt denies numbness or weakness in legs or problems with bladder or bowels or any urinary symptoms. Related Data Allergies Allergy/AdvReac Type Severity Reaction Status Date / Time No Known Allergies Allergy Verified 07/11/25 10:45 Review of Systems 2 Review of Systems: All systems reviewed & are unremarkable except as noted in HPI and below PMFSH Past Medical History Medical History Diabetes (~07/06/24) A1C 7% on 07/06/2024 HLD (hyperlipidemia) Previously treated with medication, improved and statin discontinued per patient. Surgical History Surgical History History of hand surgery Finger History of mandibular surgery Jaw reconstruction Family History Family History Father Heart failure Diabetes mellitus Grandparent Hypertension Diabetes mellitus Mother No problems noted. Social History Social History Smoking packs per day: 1 Smoking cigarettes per day: 20.0 Years smoked: 30 Smoking pack-years: 30.00 Smoking status: Current every day smoker Tobacco type: cigarettes Do You Feel Safe in your Home?: Yes Lack of Transportation: No Lack of Food: Never True Current Housing: I Have Housing Concerned About Future Housing: No Difficulty Paying Gas/Electric Bills: No Difficulty Paying for Meds: No Currently Unemployed: No Education: Decline to Answer Difficulty w/ Childcare or Family Care: Decline to Answer Spiritual care concerns: No Exam 2 Const: General: in distress (pain) severe, diaphoretic and uncomfortable O rientation/consciousness: patient oriented x3 Limitations: no limitations HENMT: Mouth: Yes Normal oral and palatal mucosa present Neck: Neck: normal visual inspection Resp: Effort & Inspection: normal respiratory effort and able to speak in complete sentences Auscultation: clear to auscultation bilaterally Cardio: Rate: regular rate Rhythm: regular rhythm GI: Inspection: normal to inspection GI Palp: No abdominal tenderness, Yes Soft to palpation and No Tenderness to palpation present (GI) Auscultation: n ormal bowel sounds : General: Yes CVA tenderness on the right Back/Spine/Pelvis: Back: CVA tenderness and back tenderness (right flank but not tender over lumbar paraspinous muscles) Thoracic/Lumbar Spine: thoracic and lumbar spine normal to inspection Skin: General skin exam: normal color and no rashes or lesions noted Neuro: General: patient oriented x3 and no focal motor deficits Extrem: General: normal to inspection, full ROM and no clubbing, cyanosis or edema Psych: Appearance: grossly normal Mental Status: mental status grossly normal Speech and movement: Normal speech and movement present Affect: n ormal affect Course Vital Signs Vital signs: Vital Signs Temperature 98.4 F 07/11/25 10:26 Pulse Rate 73 07/11/25 10:26 Respiratory Rate 20 07/11/25 10:26 Blood Pressure 159/77 H 07/11/25 10:26 Pulse Oximetry 100 07/11/25 10:26 Oxygen Delivery Room Air 07/11/25 10:26 Temperature 98.4 F 07/11/25 10:26 Pulse Rate 73 07/11/25 10:26 Respiratory Rate 20 07/11/25 10:26 Blood Pressure 159/77 H 07/11/25 10:26 Pulse Oximetry 100 07/11/25 10:26 Oxygen Delivery Room Air 07/11/25 10:26 MDM - Back Pain/Injury MDM Narrative Medical decision making narrative: Pt presents with pain in right flank.low back. ureteral/kidney stone likely, could also be musculoskeltal or pyelonephritis. will get labs and UA and Ct abd non contrast and treat pain and nausea. Pt has 3 mm prox ureteral stone on ct. home on flomax, norco and zofran Differential Diagnosis Differential diagnosis: Likely lumbar radiculopathy, sciatica, strain of lumbar region, renal colic, pyelonephritis and discitis Lab Data Attestation: I reviewed the patient's lab results. Lab results narrative: pt says he is uncircumcised and this is why he has yeast in UA. 07/11/25 10:32 07/11/25 10:32 Labs: Lab Results 07/11/25 07/11/25 Range/Units 10:32 12:21 WBC 9.5 (4.8-10.8) K/mm3 RBC 4.60 L (4.70-6.10) M/mm3 Hgb 15.1 (14.0-18.0) g/dL Hct 44.2 (40.0-54.0) % MCV 96.1 (78.0-102.0) fL MCH 32.8 H (27.0-31.0) pg MCHC 34.2 (32-36) g/dL RDW 12.3 (11.6-14.4) % Plt Count 238 (150-420) K/mm3 MPV 9.4 (8.7-11.0) fl Immature Gran % (Auto) 0.6 H (0.0-0.0) % Neut % (Auto) 58.7 (50.0-70.0) % Lymph % (Auto) 30.6 (18.0-42.0) % [place] % (Auto) 7.4 (2.0-11.0) % Eos % (Auto) 1.9 (1.0-6.0) % Baso % (Auto) 0.8 (0.0-1.0) % Lymph # (Auto) 2.91 (1.10-4.50) K/mm3 [place] # (Auto) 0.70 (0.10-0.90) K/mm3 Eos # (Auto) 0.18 (0.02-0.50) K/mm3 Baso # (Auto) 0.08 (0.00-0.10) K/mm3 Abs Immat Gran (auto) 0.06 H (0.00-0.00) K/mm3 Absolute Neuts (auto) 5.59 (1.70-7.20) K/mm3 Absolute Nucleated RBC 0.00 (0.00-0.00) K/mm3 Nucleated RBC % 0.0 (0-0.0) % PT 10.3 (9.50-12.1) Seconds INR 0.9 APTT 23.4 L (23.9-30.70) Sec Sodium 139 (137-145) mmol/L Potassium 4.2 (3.4-5.0) mmol/L Chloride 104 (98-107) mmol/L Carbon Dioxide 23 (22-30) mmol/L Anion Gap 12 (4-12) mmol/L BUN 19 (9-20) mg/dL Creatinine 1.07 (0.7-1.3) mg/dL Estim Creat Clear Calc 105 ml/min Estimated GFR > 60 (59 - ) Glucose 305 H (65-110) mg/dL Calculated Osmolality 301 H (285-295) mOsm/kg Calcium 9.7 (8.4-10.2) mg/dL Total Bilirubin 0.7 (0.2-1.3) mg/dL AST 43 (17-59) U/L ALT 52 H (6-50) U/L Alkaline Phosphatase 100 (38-126) U/L Total Protein 9.2 H (6.3-8.2) g/dL Albumin 4.6 (3.5-5.1) g/dL Urine Color Light yellow (Yellow) Urine Appearance Sl cloudy A (Clear) Urine pH 6.0 (5.0-8.0) Ur Specific [place] 1.025 H (1.010-1.020) Urine Protein Trace H (Negative) Urine Glucose (UA) 3+ H (Negative) Urine Ketones Trace H (Negative) Ur Blood (Man) 3+ H (Negative) Urine Nitrate Negative (Negative) Urine Bilirubin Negative (Negative) Urine Urobilinogen 0.2 (0.2-1.0) mg/dL Leukocyte Esterase Rfl Negative (Negative) LINDA/UL Urine RBC 51-75 H (0-2) /hpf Urine WBC None seen (0-3) /hpf Ur Squamous Epith Cells Few (Few) /hpf Urine Bacteria Trace (None) /hpf Urine Yeast (Budding) Present H (None) /hpf Imaging Data Attestation: I personally reviewed and interpreted this imaging study as follows: My impression: right prox ureteral stone with hydro Radiologist's impression: same Discharge Plan Discharge Clinical Impression: Ureterolithiasis Patient Disposition: Home Condition: Improved Instructions: Antibiotic Form, Kidney Stones (ED) Patient Language: Latvian Prescriptions: New hydrocodone-acetaminophen 5-325 mg tablet 1 tablet PO Q6H PRN (Reason: pain) Qty: 14 0RF tamsulosin [Flomax] 0.4 mg capsule 0.4 mg PO DAILY Qty: 10 0RF ondansetron 4 mg tablet,disintegrating 4 mg PO Q8H PRN (Reason: nausea and vomiting) Qty: 14 0RF No Action ticagrelor [Brilinta] 90 mg Tablet 90 mg PO Q12HR 30 Days Qty: 60 11RF metoprolol succinate 50 mg Tablet Extended Release 24 Hr 50 mg PO QAM 30 Days Qty: 30 1RF aspirin 81 mg Tablet,Delayed Release (Dr/Ec) 81 mg PO QAM Qty: 30 1RF rosuvastatin 20 mg Tablet 40 mg PO QAM 30 Days Qty: 60 1RF metformin 500 mg tablet 500 mg PO BID Qty: 60 1RF Follow-up/Referrals: Jung Ortiz MD [Physician, Urology] Parag Sorensen MD [Primary Care Provider, Internal Medicine]
[2025-07-11] MEDS: SODIUM CHLORIDE 0.9% IV 1,000 ML 999 ML IV CONT (10:35)
[2025-07-11] MEDS: ONDANSETRON INJ 4 MG/2 ML VIAL IV PUSH (10:36)
[2025-07-11] MEDS: KETOROLAC 30 MG/ML VIAL (*BKC) IV PUSH (10:36)
[2025-07-11] MEDS: MORPHINE SULFATE (*CRX) 4 MG/ML INJ IV PUSH (10:36)
[2025-07-11 10:37] LABS: Hematocrit 44.2 % (40.0-54.0); Hemoglobin 15.1 g/dL (14.0-18.0); Immature Granulocyte Percent A 0.6 % (0.0-0.0); Lymphocytes Absolute Auto 2.91 K/mm3 (1.10-4.50); Mean Corpuscular HGB Conc 34.2 g/dL (32-36); Mean Corpuscular Hemoglobin 32.8 pg (27.0-31.0); Mean Corpuscular Volume 96.1 fL (78.0-102.0); Nucleated Red Blood Cells Absolute Auto 0.00 K/mm3 (0.00-0.00); Nucleated Red Blood Cells Perc 0.0 % (0-0.0); Platelet Count Result 238 K/mm3 (150-420); Red Blood Count 4.60 M/mm3 (4.70-6.10); White Blood Count 9.5 K/mm3 (4.8-10.8)
[2025-07-11 10:51] LABS: Alanine Aminotransferase 52 U/L (6-50); Albumin Level 4.6 g/dL (3.5-5.1); Alkaline Phosphatase 100 U/L (38-126); Anion Gap 12 mmol/L (4-12); Aspartate Amino Transferase 43 U/L (17-59); Bilirubin,Total 0.7 mg/dL (0.2-1.3); Blood Urea Nitrogen 19 mg/dL (9-20); Calcium 9.7 mg/dL (8.4-10.2); Carbon Dioxide 23 mmol/L (22-30); Chloride 104 mmol/L (98-107); Estimated CRCL calculation 105 ml/min; Estimated Glomerular Filt Rate > 60; Glucose 305 mg/dL (65-110); INR 0.9; Osmolality Calculated 301 mOsm/kg (285-295); Partial Thromboplastin Time 23.4 Sec (23.9-30.70); Potassium 4.2 mmol/L (3.4-5.0); Prothrombin Time 10.3 Seconds (9.50-12.1); Sodium 139 mmol/L (137-145); Total Protein 9.2 g/dL (6.3-8.2)
[2025-07-11] MEDS: HYDROmorphone HCL INJ (*CRX) 2 MG/ML VIAL 1 MG IV PUSH (11:25)
[2025-07-11 12:25] LABS: Add Urine Microscopic? YES; Glucose Urine UA 3+ (Negative); Leukocyte Esterase Ur Negative LEU/UL (Negative); Nitrate Urine Negative (Negative); Specific Grav Ur 1.025 (1.010-1.020)
[2025-07-11 12:34] LABS: Appearance Urine Sl Cloudy (Clear)
[2025-07-11 12:36] LABS: Budding Yeast Urine Present /hpf
[2025-07-11 12:59] VITALS: BP 153/92; PULSE 69; RESP 16; TEMP 36.6; O2SAT 98
== END 2025-07-11 13:03 | disposition home or self-care (01) ==
PROVIDERS: Emergency Provider Emergency Medicine; PCP Family Medicine
DX: N20.1 Calculus of ureter (principal); E78.5 Hyperlipidemia, unspecified; E11.9 Type 2 diabetes mellitus without complications; F17.210 Nicotine dependence, cigarettes, uncomplicated
CPT/HCPCS: 36415; 74176; 80053; 81001; 85025; 85610; 85730; 96361; 96374; 96375; 99284; J1171; J1885; J2270; J2405; J7030

== ENCOUNTER 2025-07-13 19:03 | Emergency (ER) | payer OTHER, SELFPAY ==
[2025-07-13 19:03] VITALS: BP 163/83; PULSE 89; RESP 20; TEMP 36.6; O2SAT 96
--- NOTE | 2025-07-13 19:04 | ED_ITS ---
HPI - Abdominal Pain General Chief Complaint: Urogenital-Male Stated Complaint: RIGHT FLANK PAIN Time Seen by Provider: 07/13/25 19:03 Source: patient Mode of arrival: ambulatory Limitations: no limitations History of Present Illness HPI narrative: Patient is a 49-year-old male with right flank pain for the past hour. Pain was controlled after finding out he had a kidney stone 3 days ago here in the emergency room. He has a 3 mm stone that is been trying to past without pain for the past few days but now the pain has increased severely for the patient. He cannot urinate or bowel movement at this time. MD elicited complaint: abdominal pain (Right) and flank pain (Right) Pertinent past history: other (Coronary artery disease, hyperlipidemia, hypertension, diabetes 2) Onset (ago): hour(s) (1) Pain Consistency: constant Location: RLQ and R flank Severity: severe Pain scale (0-10): 8 Quality: sharp Radiation: none Migration to: R flank Exacerbating factors: movement Relieving factors: nothing Context: confirms other (Kidney stone on the right at 3 mm working on passing at this time) Associated symptoms: nausea Treatments prior to arrival: prescription analgesics Related Data Allergies Allergy/AdvReac Type Severity Reaction Status Date / Time No Known Allergies Allergy Verified 07/11/25 10:45 Review of Systems 2 Review of Systems: All systems reviewed & are unremarkable except as noted in HPI and below Constitutional: Constitutional: Reports no additional constitutional complaints Eyes: Eyes: Reports no additional eye complaints ENT: Reports system reviewed and no additional complaints, except as documented Cardiovascular: Cardiovascular: Reports no additional cardiovascular complaints Respiratory: Respiratory: Reports no additional respiratory complaints Gastrointestinal: Gastrointestinal: Reports no additional gastrointestinal complaints Genitourinary: Genitourinary: Reports no additional male genitourinary complaints Musculoskeletal: Musculoskeletal: Reports no additional musculoskeletal complaints Integumentary/Breasts: Skin/Breast: Reports system reviewed and no additional complaints, except as docu Neurologic: Reports system reviewed and no additional complaints, except as documented Psychiatric: Psychiatric: Reports no additional psychiatric complaints Endocrine: Endocrine: Reports no additional endocrine complaints Hematologic/Lymphatic: Hematologic/Lymphatic: Reports no additional hematologic/lymphatic complaints Allergic/Immunologic: Allergic/Immunologic: Reports no additional allergic/immunologic complaints PMFSH Past Medical History Medical History Diabetes (~07/06/24) A1C 7% on 07/06/2024 HLD (hyperlipidemia) Previously treated with medication, improved and statin discontinued per patient. Surgical History Surgical History History of mandibular surgery Jaw reconstruction History of hand surgery Finger Family History Family History Father Heart failure Diabetes mellitus Grandparent Hypertension Diabetes mellitus Mother No problems noted. Social History Social History Smoking packs per day: 1 Smoking cigarettes per day: 20.0 Years smoked: 30 Smoking pack-years: 30.00 Smoking status: Current every day smoker Tobacco type: cigarettes Do You Feel Safe in your Home?: Yes Lack of Transportation: No Lack of Food: Never True Current Housing: I Have Housing Concerned About Future Housing: No Difficulty Paying Gas/Electric Bills: No Difficulty Paying for Meds: No Currently Unemployed: No Education: Decline to Answer Difficulty w/ Childcare or Family Care: Decline to Answer Spiritual care concerns: No Exam 2 Const: General: ill appearing Nutritional Appearance: well nourished O rientation/consciousness: patient oriented x3 Limitations: no limitations HENMT: Head: normal to inspection Ears: external ears normal F jhon/Nose/Sinus: Normal external nose present Eyes: Conjunctivae: conjunctivae normal Pupils: Equal, round and reactive pupils present EOM: EOMs intact bilaterally Neck: Neck: normal visual inspection Chest: Chest palpation & inspection: normal inspection of the chest Resp: Effort & Inspection: normal respiratory effort and not labored A uscultation: clear to auscultation bilaterally and no crackles Cardio: Rate: regular rate Rhythm: regular rhythm Heart sounds: no murmurs GI: Inspection: non-distended GI Palp: Yes Soft to palpation and No Tenderness to palpation present (GI) Auscultation: normal bowel sounds : General: Yes bladder normal to palpation Back/Spine/Pelvis: Back: No no CVA tenderness and CVA tenderness (Right) Skin: General skin exam: normal color Rashes: no rashes Wounds: no wounds Neuro: General: patient oriented x3, moves all extremities and no meningeal signs Extrem: General: normal to inspection, no clubbing, cyanosis or edema and no pedal edema Psych: Mental Status: mental status grossly normal Affect: normal affect Attitude: cooperative Course Vital Signs Vital signs: Vital Signs Temperature 36.6 C 07/13/25 19:03 Pulse Rate 89 07/13/25 19:03 Respiratory Rate 20 07/13/25 19:03 Blood Pressure 163/83 H 07/13/25 19:03 Pulse Oximetry 96 07/13/25 19:03 Oxygen Delivery Room Air 07/13/25 19:03 Temperature 36.6 C 07/13/25 19:03 Pulse Rate 89 07/13/25 19:03 Respiratory Rate 20 07/13/25 19:03 Blood Pressure 163/83 H 07/13/25 19:03 Pulse Oximetry 96 07/13/25 19:03 Oxygen Delivery Room Air 07/13/25 19:03 MDM - Abdominal Pain MDM Narrative Medical decision making narrative: Patient is a 49-year-old male with right flank pain and known 3 mm kidney stone. Pain control. Labs. UA. Lab Data Attestation: I reviewed the patient's lab results. Lab results narrative: Elevated wbc's is from acute pain syndrome of margination. 07/13/25 19:17 07/13/25 19:17 Labs: Lab Results 07/13/25 07/13/25 Range/Units 19:17 21:14 WBC 14.2 H (4.8-10.8) K/mm3 RBC 4.29 L (4.70-6.10) M/mm3 Hgb 14.4 (14.0-18.0) g/dL Hct 41.5 (40.0-54.0) % MCV 96.7 (78.0-102.0) fL MCH 33.6 H (27.0-31.0) pg MCHC 34.7 (32-36) g/dL RDW 12.5 (11.6-14.4) % Plt Count 191 (150-420) K/mm3 MPV 9.1 (8.7-11.0) fl Immature Gran % (Auto) 0.6 H (0.0-0.0) % Neut % (Auto) 84.2 H (50.0-70.0) % Lymph % (Auto) 8.2 L (18.0-42.0) % [place] % (Auto) 6.0 (2.0-11.0) % Eos % (Auto) 0.6 L (1.0-6.0) % Baso % (Auto) 0.4 (0.0-1.0) % Lymph # (Auto) 1.17 (1.10-4.50) K/mm3 [place] # (Auto) 0.85 (0.10-0.90) K/mm3 Eos # (Auto) 0.08 (0.02-0.50) K/mm3 Baso # (Auto) 0.05 (0.00-0.10) K/mm3 Abs Immat Gran (auto) 0.08 H (0.00-0.00) K/mm3 Absolute Neuts (auto) 11.97 H (1.70-7.20) K/mm3 Absolute Nucleated RBC 0.00 (0.00-0.00) K/mm3 Nucleated RBC % 0.0 (0-0.0) % Sodium 139 (137-145) mmol/L Potassium 4.2 (3.4-5.0) mmol/L Chloride 103 (98-107) mmol/L Carbon Dioxide 26 (22-30) mmol/L Anion Gap 10 (4-12) mmol/L BUN 18 (9-20) mg/dL Creatinine 1.11 (0.7-1.3) mg/dL Estim Creat Clear Calc 101 ml/min Estimated GFR > 60 (59 - ) Glucose 273 H (65-110) mg/dL Calculated Osmolality 299 H (285-295) mOsm/kg Calcium 9.6 (8.4-10.2) mg/dL Total Bilirubin 1.0 (0.2-1.3) mg/dL AST 42 (17-59) U/L ALT 49 (6-50) U/L Alkaline Phosphatase 79 (38-126) U/L Total Protein 9.4 H (6.3-8.2) g/dL Albumin 4.6 (3.5-5.1) g/dL Urine Color Yellow (Yellow) Urine Appearance Turbid A (Clear) Urine pH 5.5 (5.0-8.0) Ur Specific [place] >= 1.030 H (1.010-1.020) Urine Protein Trace H (Negative) Urine Glucose (UA) 2+ H (Negative) Urine Ketones 2+ H (Negative) Ur Blood (Man) 2+ H (Negative) Urine Nitrate Negative (Negative) Urine Bilirubin 1+ H (Negative) Urine Urobilinogen 0.2 (0.2-1.0) mg/dL Leukocyte Esterase Rfl Negative (Negative) LINDA/UL Urine RBC 11-20 H (0-2) /hpf Urine WBC 0-5 (0-3) /hpf Ur Squamous Epith Cells Few (Few) /hpf Urine Bacteria 3+ H (None) /hpf Imaging Data Attestation: I personally reviewed and interpreted this imaging study as follows: Radiologist's impression: CT scan from 3 days ago shows a right renal stone in the ureter proximal at 3 mm Discharge Plan Discharge Clinical Impression: Calculus, ureteral Patient Disposition: Home Condition: Stable Instructions: Kidney Stones (ED) Patient Language: Portuguese Prescriptions: New oxycodone-acetaminophen [Percocet] 5-325 mg tablet 1 tablet PO Q8H PRN (Reason: pain) Qty: 20 0RF Rx Instructions: 1-2 tabs per dose No Action hydrocodone-acetaminophen 5-325 mg tablet 1 tablet PO Q6H PRN (Reason: pain) Qty: 14 0RF tamsulosin [Flomax] 0.4 mg capsule 0.4 mg PO DAILY Qty: 10 0RF ondansetron 4 mg tablet,disintegrating 4 mg PO Q8H PRN (Reason: nausea and vomiting) Qty: 14 0RF ticagrelor [Brilinta] 90 mg Tablet 90 mg PO Q12HR 30 Days Qty: 60 11RF metoprolol succinate 50 mg Tablet Extended Release 24 Hr 50 mg PO QAM 30 Days Qty: 30 1RF aspirin 81 mg Tablet,Delayed Release (Dr/Ec) 81 mg PO QAM Qty: 30 1RF rosuvastatin 20 mg Tablet 40 mg PO QAM 30 Days Qty: 60 1RF metformin 500 mg tablet 500 mg PO BID Qty: 60 1RF Follow-up/Referrals: Parag Sorensen MD [Primary Care Provider, Internal Medicine] Time of Disposition: 21:34
[2025-07-13] MEDS: HYDROmorphone HCL INJ (*CRX) 2 MG/ML VIAL 1 MG IV PUSH ×2 (19:15→20:03)
[2025-07-13] MEDS: ONDANSETRON INJ 4 MG/2 ML VIAL IV PUSH (19:15)
[2025-07-13 19:22] LABS: Hematocrit 41.5 % (40.0-54.0); Hemoglobin 14.4 g/dL (14.0-18.0); Immature Granulocyte Percent A 0.6 % (0.0-0.0); Lymphocytes Absolute Auto 1.17 K/mm3 (1.10-4.50); Mean Corpuscular HGB Conc 34.7 g/dL (32-36); Mean Corpuscular Hemoglobin 33.6 pg (27.0-31.0); Mean Corpuscular Volume 96.7 fL (78.0-102.0); Nucleated Red Blood Cells Absolute Auto 0.00 K/mm3 (0.00-0.00); Nucleated Red Blood Cells Perc 0.0 % (0-0.0); Platelet Count Result 191 K/mm3 (150-420); Red Blood Count 4.29 M/mm3 (4.70-6.10); White Blood Count 14.2 K/mm3 (4.8-10.8)
[2025-07-13 19:34] LABS: Alanine Aminotransferase 49 U/L (6-50); Albumin Level 4.6 g/dL (3.5-5.1); Alkaline Phosphatase 79 U/L (38-126); Anion Gap 10 mmol/L (4-12); Aspartate Amino Transferase 42 U/L (17-59); Bilirubin,Total 1.0 mg/dL (0.2-1.3); Blood Urea Nitrogen 18 mg/dL (9-20); Calcium 9.6 mg/dL (8.4-10.2); Carbon Dioxide 26 mmol/L (22-30); Chloride 103 mmol/L (98-107); Estimated CRCL calculation 101 ml/min; Estimated Glomerular Filt Rate > 60; Glucose 273 mg/dL (65-110); Osmolality Calculated 299 mOsm/kg (285-295); Potassium 4.2 mmol/L (3.4-5.0); Sodium 139 mmol/L (137-145); Total Protein 9.4 g/dL (6.3-8.2)
--- NOTE | 2025-07-13 19:48 | PC.NURSE ---
PATIENT CURRENTLY RESTING HIS HEAD ON OVERBED TABLE. REPORTS THAT HE IS FEELING BETTER. AT HIS SIDE
--- NOTE | 2025-07-13 19:59 | PC.NURSE ---
PATIENT REPORTS THAT HIS PAIN HAS INCREASED. DR RICKS NOTIFIED
--- NOTE | 2025-07-13 20:59 | PC.NURSE ---
PATIENT HAS URINATED IN URINAL WITH STRAINER. NO STONE NOTED AT THIS TIME. PATIENT IS UP AND WALKING AROUND THE ROOM. REPORTS THAT HE IS FEELING BETTER.
--- NOTE | 2025-07-13 21:16 | PC.NURSE ---
PATIENT IS REQUESTING TO GO HOME. DR RICKS NOTIFIED
[2025-07-13 21:25] LABS: Add Urine Microscopic? YES; Glucose Urine UA 2+ (Negative); Leukocyte Esterase Ur Negative LEU/UL (Negative); Nitrate Urine Negative (Negative); Specific Grav Ur >= 1.030 (1.010-1.020)
[2025-07-13 21:29] LABS: Appearance Urine Turbid (Clear)
--- NOTE | 2025-07-13 21:31 | PC.NURSE ---
CURRENTLY WAITING ON URINE TO RESULT. PATIENT UPDATED. PATIENT IS NOW SITTING UP ON STRETCHER.
[2025-07-13 21:42] VITALS: BP 154/76; RESP 88; O2SAT 20
== END 2025-07-13 21:42 | disposition home or self-care (01) ==
PROVIDERS: Emergency Provider Emergency Medicine; PCP Family Medicine
DX: N20.1 Calculus of ureter (principal); I25.10 Atherosclerotic heart disease of native coronary artery without angina pectoris; E78.5 Hyperlipidemia, unspecified; I10 Essential (primary) hypertension; E11.9 Type 2 diabetes mellitus without complications; F17.210 Nicotine dependence, cigarettes, uncomplicated
CPT/HCPCS: 36415; 80053; 81001; 85025; 96374; 96375; 96376; 99284; J1171; J2405